=== PATIENT | female | born 1950 | race Caucasian/White ===

== ENCOUNTER → 2016-07-08 | Outpatient (REF) | payer OTHER ==
[~2016-07-08] MED LIST: ACET500C OR; ACET65TA OR; FLEXERIL PO; MULTIVIT PO; OMEP20TA7 OR; PROZ20CA OR; VICO5TAB OR
== END ==
LOC: M LAB REF 13:20
PROVIDERS: ATTEND Family Medicine
DX: R35.0 Frequency of micturition (principal)

== ENCOUNTER → 2016-08-12 | Outpatient (REF) | payer MEDICARE | LOC: M LAB REF 12:58 | PROVIDERS: ATTEND Family Medicine | DX: R31.9 Hematuria, unspecified (principal) ==

== ENCOUNTER 2018-05-25 03:11 | Inpatient (IN) | payer MEDICARE ==
[~2018-05-25] VITALS: Ht 162.6 cm; Wt 72.7 kg
[2018-05-25] MEDS ORDERED: NS 500 ML IV ONE ×2 (04:30→05:15)
[2018-05-25] MEDS ORDERED: PANTOPRAZOLE 40MG INJ (PROTONIX) (C9113) IV ONE (04:30)
[2018-05-25] MEDS ORDERED: MORPHINE 2 MG/ML 1ML SYRINGE (J2270) IV ONE (04:30)
[2018-05-25 04:35] LABS: BASO % 0.1 % (0.0-1.0); HEMATOCRIT 38.6 % (36.0-47.0); HEMOGLOBIN 13.1 g/dl (12.0-15.5); LYMPH # 0.7 10^3/uL (1.5-4.5); LYMPH % 4.7 % (24.0-44.0); MEAN CORPUSCULAR HEMOGLOBIN 30.8 pg (27.0-33.0); MEAN CORPUSCULAR HGB CONC 33.9 g/dl (32.0-36.5); MEAN CORPUSCULAR VOLUME 90.8 fl (80.0-96.0); MONO # 0.4 10^3/uL (0.0-0.8); MONO % 2.6 % (0.0-5.0); NEUTROPHILS # 13.5 10^3/uL (1.8-7.7); NEUTROPHILS % 92.2 % (36.0-66.0); PLATELET COUNT, AUTOMATED 309 10^3/uL (150-450); RED BLOOD COUNT 4.25 10^6/uL (4.00-5.40); WHITE BLOOD COUNT 14.6 10^3/uL (4.0-10.0)
[2018-05-25 04:39] LABS: INR 1.05; PROTHROMBIN TIME 13.8 SECONDS (12.1-14.4)
[2018-05-25 04:40] LABS: PARTIAL THROMBOPLASTIN TIME 21.2 SECONDS (25.4-37.6)
[2018-05-25 04:46] LABS: ALBUMIN 3.9 GM/DL (3.2-5.2); ALT/SGPT 24 U/L (12-78); BILIRUBIN,DIRECT 0.1 MG/DL (0.0-0.2); BILIRUBIN,TOTAL 0.3 MG/DL (0.2-1.0); BLOOD UREA NITROGEN 25 MG/DL (7-18); CALCIUM LEVEL 8.9 MG/DL (8.8-10.2); CARBON DIOXIDE LEVEL 23 MEQ/L (21-32); CHLORIDE LEVEL 103 MEQ/L (98-107); CREATININE FOR GFR 0.89 MG/DL (0.55-1.30); GLOMERULAR FILTRATION RATE > 60.0 (>39); GLUCOSE, FASTING 236 MG/DL (70-100); LIPASE 109 U/L (73-393); POTASSIUM SERUM 4.1 MEQ/L (3.5-5.1); SODIUM LEVEL 137 MEQ/L (136-145); TOTAL PROTEIN 7.5 GM/DL (6.4-8.2)
[2018-05-25] MEDS ORDERED: cloNIDine 0.2 MG TAB PO ONE (05:15)
[2018-05-25 05:25] VITALS: BP 186/79
[2018-05-25] MEDS ORDERED: ISOVUE-370 76% 100ML VIAL (Q9967) As Ordered ONE (05:55)
[2018-05-25] MEDS ORDERED: RANI150T PO (06:01)
[2018-05-25] MEDS ORDERED: IMODTAB PO (06:01)
[2018-05-25] MEDS ORDERED: FLUO20CA19 PO (06:01)
[2018-05-25] MEDS ORDERED: IMOD2TAB16 PO (06:01)
[2018-05-25] MEDS ORDERED: ONDANSETRON 4MG/2ML VIAL (J2405) IV PRN (06:30)
--- NOTE | 2018-05-25 06:30 | REPVR ---
EXAM: CT Abdomen and Pelvis With Contrast EXAM DATE/TIME: 05/25/2018 5:50 AM CLINICAL HISTORY: 68 years old, female; Pain; Abdominal pain; Generalized TECHNIQUE: Axial computed tomography images of the abdomen and pelvis with intravenous contrast. All CT scans at this facility use at least one of these dose optimization techniques: automated exposure control; mA and/or kV adjustment per patient size (includes targeted exams where dose is matched to clinical indication); or iterative reconstruction. Coronal and sagittal reformatted images were created and reviewed. CONTRAST: 100 ml of iso administered intravenously. COMPARISON: No relevant prior studies available. FINDINGS: Lower thorax: There is a small sliding hiatal hernia. ABDOMEN: Liver: Normal. No mass. Gallbladder and bile ducts: Normal. No calcified stones. No ductal dilation. Pancreas: Normal. No ductal dilation. Spleen: Normal. No splenomegaly. Adrenals: Normal. No mass. Kidneys and ureters: Normal. No hydronephrosis. Stomach and bowel: There is mild sigmoid colon diverticulosis. There is significant thickening and edema of the ascending, transverse and descending colon most severe in the distal transverse and descending colon with wall edema. There is under distended versus thickened small bowel loops. There are small shoddy mesenteric lymph nodes. Appendix: No evidence of appendicitis. PELVIS: Bladder: Unremarkable as visualized. Reproductive: There is a 2.2 x 1.8 cm left adnexal cyst. ABDOMEN and PELVIS: Intraperitoneal space: Normal. No free air. No significant fluid collection. Bones/joints: There is lumbar spine scoliosis with secondary DJD. Soft tissues: Unremarkable. Vasculature: There is circumaortic left renal vein. There is mild aortoiliac mural calcifications. Lymph nodes: See Stomach And Bowel Finding. IMPRESSION: 1. Ascending and transverse colon wall thickening and much more significant thickening and edema of the distal transverse, descending and sigmoid colon suggestive of colitis. Mesenteric arteries appear to be widely patent. 2. Thickened vs under distended small bowel loops with small shoddy lymph nodes raising the suspicion of enteritis. 3. Small sliding hiatal hernia. 4. 2.2 x 1.8 cm left adnexal cyst. Given the postmenopausal age of the patient correlation with pelvic ultrasound is recommended to document simple nature of the cyst as any complex cyst in a postmenopausal female is abnormal. Electronically signed by: David Sharpe On 05/25/2018 06:30:13 AM
[2018-05-25] MEDS ORDERED: LR 1,000 ML IV SCH (06:45)
[2018-05-25] MEDS ORDERED: MORPHINE 4 MG/ML 1ML VIAL/SYRINGE (J2270) IV PRN (06:45)
[2018-05-25 07:02] LABS: ERYTHROCYTE SEDIMENTATION RATE 11 mm/hr (0-30)
[2018-05-25 07:04] LABS: C REACTIVE PROTEIN QUANTITATIV < 0.30 MG/DL (0.00-0.30); MAGNESIUM LEVEL 1.8 MG/DL (1.8-2.4)
[2018-05-25 07:08] LABS: HEMOGLOBIN A1c 5.5 %
[2018-05-25] MEDS: CIPROFLOXACIN 400 MG in APPROPRIATE DILUENT 1 EA IV SCH ×2 (07:17→21:47)
[2018-05-25] MEDS: NS 1,000 ML IV SCH (08:30)
[2018-05-25] MEDS: metroNIDAZOLE 500 MG in APPROPRIATE DILUENT 1 EA IV SCH ×3 (08:51→23:45)
[2018-05-25] MEDS: FLUoxetine 20 MG CAP PO SCH (09:00)
[2018-05-25 09:30] VITALS: BP 115/56
--- NOTE | 2018-05-25 09:42 | HPE ---
DATE OF ADMISSION: 05/25/2018 CHIEF COMPLAINT: Acute bloody diarrhea. HISTORY OF PRESENT ILLNESS: The patient is a 68-year-old female with significant past medical history of depression, acid reflux, as well as chronic diarrhea, for which she states that she has taken chronic Imodium for the past 5 to 6 years. The patient states that she typically has two to three loose stools on a daily basis. When she does utilize the Imodium, she tends to have one stool typically semi formed or watery. She has had a colonoscopy in the past in 2013 here at [facility] with Dr. Farias, which read as a normal colon, repeat was scheduled for the next 10 years. As per patient's account, her primary care provider has suggested that her chronic diarrhea may be secondary to use of proton pump inhibitor, as well as Pepcid in the past. She continues to remain on Pepcid for what she described as severe acid reflux. She presents today with acute bloody diarrhea, dysentery over the last 24 hours. The patient states that she has had multiple bowel movements associated with crampy abdominal pain, bright red blood mixed in with her stools. The abdominal pain is somewhat diffuse, but mostly concentrated in the abdomen and associated with several episodes of nonbloody, nonbilious vomiting, and the last time she was able to tolerate oral intake was around 5:00 p.m. today. The patient's is at bedside, who does not have similar type symptoms, has eaten everything that the patient has eaten, her last meal she states was around 5:00 p.m. On her colonoscopy reports: She has chronic diarrhea, for which she depends on Imodium, though it was reported a grossly normal colonoscopy. There were no biopsies to assess for any microscopic colitis. She has no history of recent travel out of the country. No history of recent antibiotic use or recent hospitalization to suggest risk factors for Clostridium (C.) difficile. She denies any cough, chest pain, fevers, chills, urinary symptoms, shortness of breath. PAST MEDICAL HISTORY: See history of present illness. PAST SURGICAL HISTORY: She has had a lumpectomy. HOME MEDICATIONS: Include: - Prozac - Pepcid ALLERGIES: TYLENOL, HYDROCODONE, reactions are unclear. FAMILY HISTORY: Noncontributory. No family history of inflammatory bowel disease or gastrointestinal malignancies. SOCIAL HISTORY: She is a former smoker, quit many years ago. Denies any alcohol or illicit drug use. REVIEW OF SYSTEMS: 12-point review of system was completed, all of which were negative except those listed in the history of present illness. VITAL SIGNS: On admission: Temperature 96, pulse 82, respirations 20, blood pressure 213/97, saturating 99% on room air. The patient has no known history of hypertension. No documented history of hypertension. She was given clonidine in the emergency room, to which the blood pressure responded somewhat, systolic decreased to 170. PHYSICAL EXAMINATION: GENERAL: She is well nourished and in no apparent distress. HEAD: Normocephalic, atraumatic. EYES: Extraocular movements are intact. Pupils are equal, round and reactive to light. NECK: Supple. No jugular venous pressure. LUNGS: Clear to auscultation. No crackles, wheezes, rales or rhonchi. CARDIOVASCULAR: Regular rate and rhythm. Normal S1, S2. No murmurs, gallops or rubs. ABDOMEN: Nondistended. Hypoactive bowel sounds. No rebound or guarding. Minimal tenderness on deep palpation. SKIN: Intact. No rashes, lesions or breakdown. NEUROLOGIC EXAM: Alert and oriented times three. No focal deficits appreciated. LABORATORIES: On admission, completed in the emergency room: White count 14 with a left shift, hemoglobin and hematocrit 13/38, platelet count 309. Coags within normal limits. Chemistry shows a normal potassium. BUN and creatinine of 25/0.89, random glucose of 236 on her BMP. IMAGING: CT of the abdomen and pelvis completed with IV contrast only shows ascending and transverse colon wall thickening. Much more significant thickening of the distal transverse, descending, and sigmoid colon suggestive of colitis. Mesenteric arteries appear to be widely patent, thickened small bowel loops, small shotty lymph nodes raising suspicion for enteritis. Small hiatal hernia. ASSESSMENT AND PLAN: Acute dysentery bloody diarrhea superimposed on chronic diarrhea, reason for chronic diarrhea is unclear. This is likely an infectious colitis versus inflammatory colitis. We will send an ESR, C-reactive protein, stool calprotectin, stool lactoferrin. GI panel already sent from the emergency room. We will place the patient on Cipro and Flagyl. Zofran as needed. IV fluids. Diet as tolerated. We will avoid anticoagulants for deep vein thrombosis (DVT) prophylaxis and place the patient on SCDs. If the patient continues to have chronic diarrhea, she might likely benefit from an outpatient colonoscopy with biopsy to rule out microscopic colitis. We will hold her Imodium, as well as her Pepcid for now. For depression, we will continue her Prozac. For abnormal blood pressure on admission, the patient has no history of hypertension. She was given clonidine in the emergency room, systolic blood pressure decreased to the 170s. This may be possibly secondary to pain or undiagnosed hypertension. We will hold off initiation of antihypertensives for now. Vitals as per flow protocol. If blood pressure continues to remain elevated, she may benefit from the addition of an antihypertensive. Last systolic blood pressure was 170 and initial was in the 200s. We will also check thyroid function as the possible cause for her chronic diarrhea. For elevated glucose on her BMP, the patient has no history of diabetes. This may also be secondary to the acute infectious colitis that is currently going on, but we will send an A1/c to assess for overt diabetes. Supportive deep vein thrombosis (DVT) prophylaxis with SCDs in the setting of bloody diarrhea dysentery. Gastrointestinal prophylaxis, we will hold her Pepcid for now. Diet as tolerated. On IV fluids. MTDD
[2018-05-25 14:00] VITALS: BP 107/49
[2018-05-25 18:39] LABS: HEMATOCRIT 36.6 % (36.0-47.0); HEMOGLOBIN 12.3 g/dl (12.0-15.5)
[2018-05-25 22:00] VITALS: BP 121/58
[2018-05-26] MEDS: NS 1,000 ML IV SCH ×3 (02:46→19:53)
[2018-05-26 06:00] VITALS: BP 135/63
[2018-05-26 06:22] LABS: HEMATOCRIT 33.6 % (36.0-47.0); HEMOGLOBIN 11.1 g/dl (12.0-15.5); MEAN CORPUSCULAR HEMOGLOBIN 31.1 pg (27.0-33.0); MEAN CORPUSCULAR VOLUME 94.1 fl (80.0-96.0); PLATELET COUNT, AUTOMATED 259 10^3/uL (150-450); RED BLOOD COUNT 3.57 10^6/uL (4.00-5.40); WHITE BLOOD COUNT 8.8 10^3/uL (4.0-10.0)
[2018-05-26 06:55] LABS: BLOOD UREA NITROGEN 12 MG/DL (7-18); C REACTIVE PROTEIN QUANTITATIV 0.88 MG/DL (0.00-0.30); CALCIUM LEVEL 7.9 MG/DL (8.8-10.2); CARBON DIOXIDE LEVEL 24 MEQ/L (21-32); CHLORIDE LEVEL 110 MEQ/L (98-107); CREATININE FOR GFR 0.87 MG/DL (0.55-1.30); GLOMERULAR FILTRATION RATE > 60.0 (>39); GLUCOSE, FASTING 92 MG/DL (70-100); POTASSIUM SERUM 3.6 MEQ/L (3.5-5.1); SODIUM LEVEL 141 MEQ/L (136-145)
[2018-05-26] MEDS: metroNIDAZOLE 500 MG in APPROPRIATE DILUENT 1 EA IV SCH ×2 (08:39→16:29)
[2018-05-26] MEDS: FLUoxetine 20 MG CAP PO SCH (08:39)
[2018-05-26] MEDS: CIPROFLOXACIN 400 MG in APPROPRIATE DILUENT 1 EA IV SCH ×2 (10:42→20:18)
--- NOTE | 2018-05-26 12:34 | IPNPDOC ---
Text Note Date of Service The patient was seen on 05/26/18. NOTE Subjective: Patient is a 68-year-old female with a PMHx of Chronic diarrhea, Depression, GERD , presented to the ER with complaints of abdominal pain ass ociated with diarrhea and blood in her stool. Emergency room, patient imaging that was consistent with colitis. . She was admitted to the hospitalist service for further evaluation and treatment Patient was seen and examined at the bedside. Currently she denies abdominal pain, nausea, vomiting sisters is a loose stool with blood. Patient denies any chest pain, shortness of breath or palpitations Objective: Vitals (See below) General: Lying in bed, no acute distress, comfortable, AAOx3 HEENT: NC, AT CVS: RRR, +S1S2 Lungs: Fair air entry b/l, no appreciable wheezing, rales or rhonchi Abdomen: Soft, ND, abdomen, remains nontender Extremities: - Edema, - Calf tenderness Assessment and plan: Blood stools / Abdominal pain - possibly 2/2 Colitis - possibly 2/2 infectious, possibly 2/2 ischemic colitis - Presented to ER with abdominal pain associated with bloody stools - Patient notes that her abdominal pain is resolved. However, she still expressing bloody stools - Physical does not reveal any abdominal tenderness - Leukocytosis is resolving; s/p lactic acidosis - GI panel 05/25: Negative; Blood cultures 05/25: Negative at 24 hours - CT abdomen / pelvis 05/25: 1. Ascending and transverse colon wall thickening and much more significant thickening and edema of the distal transverse, descending and sigmoid colon suggestive of colitis. Mesenteric arteries appear to be widely patent. 2. Thickened vs under distended small bowel loops with small shoddy lymph nodes raising the suspicion of enteritis. 3. Small sliding hiatal hernia. 4. 2.2 x 1.8 cm left adnexal cyst. Given the postmenopausal age of the patient correlation with pelvic ultrasound is recommended to document simple nature of the cyst as any complex cyst in a postmenopausal female is abnormal. - Will check LDH - c/w Ciprofloxacin and Flagyl (Day #2) - Consult with gastroenterology; appreciate their input; plan for colonoscopy tomorrow afternoon; NPO post-midnight and GoLYTELY at 4 PM Left adnexal cyst - Will get pelvic ultrasound for further evaluation s/p Lactic acidosis Depression - c/w Fluoxetine s/p Hypertensive urgency - likely 2/2 pain GI prophylaxis - c/w Protonix; will return patient back to famotidine as her symptoms improve DVT prophylaxis - c/w SCDs (re: rectal bleeding) VS,Fishbone, I+O VS, Fishbone, I+O Laboratory Tests 05/25/18 18:02 05/26/18 05:26 Red Blood Count 3.57 L, Mean Corpuscular Volume 94.1, Mean Corpuscular Hemoglobin 31.1, Mean Corpuscular Hemoglobin Concent 33.0, Red Cell Distribution Width 12.9, Calcium Level 7.9 L Vital Signs Date Time Temp Pulse Resp B/P (MAP) Pulse Ox O2 Delivery O2 Flow Rate FiO2 05/26/18 06:00 98.0 68 18 135/63 (87) 97 Room Air I&O- Last 24 Hours up to 6 AM 05/26/18 06:00 Intake Total 2380 ml Output Total 1070 ml Balance 1310 ml REMIGIO INGRAM MD May 26, 2018 12:34
[2018-05-26 14:00] VITALS: BP 154/67
[2018-05-26] MEDS ORDERED: GOLYTELY SOLN 4000 ML BTL PO SCH (16:00)
--- NOTE | 2018-05-26 16:14 | REP ---
Pelvic sonography: History: Evaluate for pelvic cyst. Findings: Transabdominal and transvaginal scanning are performed. Uterine dimensions are normal at 5.3 x 3.0 x 4.6 cm. Endometrial echo 0.3 cm thick and centrally placed. Uterine texture is somewhat heterogeneous. No measurable uterine mass lesion. Bladder mitchell are slightly thickened. There is a tiny amount of fluid visible in the cul-de-sac to the right of midline. The right ovary could not be seen. No right adnexal mass or cyst is seen. A normal left ovary seen measuring 2.8 x 2.2 x 1.9 cm. There is a simple cyst in the left ovary measuring 2.3 x 2.0 x 1.6 cm. Impression: Minimal fluid in the cul-de-sac. Simple appearing 2.3 cm cyst left ovary. Otherwise negative. Right ovary could not be directly visualized. Electronically Signed by Edmund Boyer MD 05/26/2018 04:05 P
--- NOTE | 2018-05-26 18:16 | CR.PDOC ---
General Date of Consultation: May 26, 2018 Referring Provider: REMIGIO INGRAM MD Attending Physician: REMIGIO INGRAM MD Consultation Primary physician/ hospitalist: Dr. Ingram. Reason for consult: Rectal bleeding HPI: 68-year-old female patient with depression on Prozac, chronic diarrhea ( using daily Imodium), presented to ER for complaints of acute onset nausea, vomiting, epigastric abdominal pain, worsening diarrhea with blood in the stool, which started on Wednesday. Patient reports having multiple episodes of loose bloody stools which gradually improved over the last 24 hours. Patient denies any fu rther nausea or vomiting and her abdominal pain also resolved. Patient's last bloody bowel movement was today morning. Patient does report subjective chills but no documented fever. Patient reports having seafood on Wednesday at a restaurant prior to onset of these symptoms. Off note: Patient had stool panel in this visit which was negative. Pertinent negative GI symptoms: Patient denies loss of appetite, early satiety or unintentional weight loss. No history of hematemesis. Patient reports regular bowel movements. Review of Systems: GI: as stated above CVS: No chest pain, No palpitations, No leg swelling. RS: No Shortness of breath, No Wheezing, no cough [employer]: No dizziness, No motor weakness, No sensory problems Hematology: No bruising, No gum bleeding, Musculoskeletal: No joint pain, ambulating well. Skin: No rash : No hematuria, No burning sensation of the urine ENT: No ear discharge/ pain, No dysphagia. Eyes: No photophobia. Home medications: reviewed. Antithrombotic agents -none Medical h/o: As above. Surgical h/o: None on abdomen. Social h/o: Alcohol-denies, tobacco-denies, IVDA/ drugs-denies. Family h/o of GI cancers -none Prior Endoscopies: --- EGD -none --- Colonoscopy -[address] Farias -- normal as per patient. Prior GI evaluation: None in [facility] Exam: Vitals: reviewed General: Alert and oriented x 3, not in distress HEENT: NO pallor, no icterus. Normal oropharynx, NO cervical lymph nodes. Chest: symmetric with bilateral clear air entry, CVS: S1, S2 heard, normal, no murmurs . Abdomen: non-distended, no surgical scars, soft, non-tender, no palpable masses, normal bowel sounds heard. Rectal exam: Patient refused / Deferred at this time in view of scheduled colonoscopy. Extremities: no pedal edema, pulses palpable. [employer]: no focal motor or sensory deficits. Moves all extremities Skin: no rash. Labs: reviewed. Imaging tests: reviewed CT abdomen and Pelvis with contrast -- showing colitis. Mesenteric arteries appear to be widely patent, Impression: - Right red bleeding per rectum with chronic history of diarrhea and use of Imodium abdominal imaging showing colon thickening -- needs further evaluation -- DDx-- Ischemic colitis vs Diverticulosis vs Colon polyps vs infectious (stool panel was negative). Recommendations: - Patient educated about the test results, possible differential diagnoses and All questions answered. - IV hydration as needed. - Continue empiric Antibiotics for now. - Avoid NSAIDs. - Patient is schedule for Colonoscopy. Patient is educated about the procedure, indications, risks (bleeding, perforation, infection, hypotension, respiratory depression, allergy, need for endotracheal intubation, surgery, colostomy, cardiac arrest, even ), benefits, limitations (e.g., missing a lesion), and all other alternatives (including no intervention) were explained to the patient who understood and agreed for the procedure. - Complete 4 liters of golytely ( start in evening and complete by midnight) - Dulcolax 20 mg at today evening. - NPO after midnight for procedure. Plan of care discussed with patient and primary team. Patient verbalized understanding and agreed with the plan. Vital Signs/I&O Vital Signs Date Time Temp Pulse Resp B/P (MAP) Pulse Ox O2 Delivery O2 Flow Rate FiO2 05/26/18 14:00 98.8 70 18 154/67 (96) 98 Room Air I&O- Last 24 Hours up to 6 AM 05/26/18 05:59 Intake Total 1730 ml Output Total 770 ml Balance 960 ml Laboratory Data Labs 24H Laboratory Tests 2 05/25/18 23:25: 05/26/18 05:26: Nucleated Red Blood Cells % (auto) 0.0, Anion Gap 7L, Glomerular Filtration Rate > 60.0, Blood Urea Nitrogen 12#, Creatinine 0.87, Sodium Level 141, Potassium Level 3.6, Chloride Level 110H, Carbon Dioxide Level 24, Calcium Level 7.9L, C-Reactive Protein, Quantitative 0.88H 05/26/18 12:49: CBC/BMP Laboratory Tests 05/26/18 05:26 Red Blood Count 3.57 L, Mean Corpuscular Volume 94.1, Mean Corpuscular Hemoglobin 31.1, Mean Corpuscular Hemoglobin Concent 33.0, Red Cell Distribution Width 12.9, Calcium Level 7.9 L Microbiology Microbiology 05/25/18 Blood Culture - Preliminary, Resulted No growth after 24 hours . All specim... 05/25/18 Gastrointestinal Tract Panel (PCR) - Final, Complete Allergies Coded Allergies: No Known Drug Allergy (Verified Allergy, Unknown, 08/15/12) Acetaminophen (Verified Adverse Reaction, Intermediate, NAUSEA AND VOMITTING, MOOD CHANGES, 08/15/12) Hydrocodone (Verified Adverse Reaction, Intermediate, NAUSEA AND VOMITTING, MOOD CHANGES, 08/15/12) Home Medications Scheduled Fluoxetine Hcl (Fluoxetine HCl) 20 Mg Cap, 20 MG PO DAILY, (Reported) Ranitidine HCl (Ranitidine HCl) 150 Mg Tab, 1 TAB PO BID, (Reported) Scheduled PRN (Imodium Multi-Symptom Rel 2-125 mg) 1 Tab Tab, 1 TAB PO BID PRN for BOWEL CARE, (Reported) Loperamide Hcl (Imodium A-D) 2 Mg Tab, 2 MG PO BID PRN for BOWEL CARE, (Reported) CHRIS HERRERA MD May 26, 2018 18:16
[2018-05-26 22:00] VITALS: BP 152/87
[2018-05-27] MEDS: metroNIDAZOLE 500 MG in APPROPRIATE DILUENT 1 EA IV SCH ×4 (00:02→23:53)
[2018-05-27 06:00] VITALS: BP 153/72
[2018-05-27 06:59] LABS: HEMOGLOBIN 11.5 g/dl (12.0-15.5); MEAN CORPUSCULAR HEMOGLOBIN 30.7 pg (27.0-33.0); MEAN CORPUSCULAR HGB CONC 33.8 g/dl (32.0-36.5); MEAN CORPUSCULAR VOLUME 90.7 fl (80.0-96.0); PLATELET COUNT, AUTOMATED 267 10^3/uL (150-450); RED BLOOD COUNT 3.75 10^6/uL (4.00-5.40); WHITE BLOOD COUNT 9.7 10^3/uL (4.0-10.0)
[2018-05-27 07:16] LABS: BLOOD UREA NITROGEN 6 MG/DL (7-18); C REACTIVE PROTEIN QUANTITATIV 0.78 MG/DL (0.00-0.30); CALCIUM LEVEL 7.9 MG/DL (8.8-10.2); CARBON DIOXIDE LEVEL 24 MEQ/L (21-32); CHLORIDE LEVEL 109 MEQ/L (98-107); CREATININE FOR GFR 0.83 MG/DL (0.55-1.30); GLOMERULAR FILTRATION RATE > 60.0 (>39); GLUCOSE, FASTING 92 MG/DL (70-100); POTASSIUM SERUM 3.5 MEQ/L (3.5-5.1); SODIUM LEVEL 144 MEQ/L (136-145)
[2018-05-27 08:00] LABS: LDH LACTATE DEHYDROGENASE 279 U/L (84-246)
[2018-05-27] MEDS: CIPROFLOXACIN 400 MG in APPROPRIATE DILUENT 1 EA IV SCH ×2 (09:00→20:54)
[2018-05-27] MEDS: FLUoxetine 20 MG CAP PO SCH (09:15)
[2018-05-27] MEDS: NS 1,000 ML IV SCH (10:21)
[2018-05-27] MEDS ORDERED: PROPOFOL 200 MG/20 ML VIAL As Ordered ONE (10:26)
[2018-05-27] MEDS ORDERED: LIDOCAINE 2% INJ 100 MG/5 ML SDV (FOR ANES.) As Ordered ONE (10:26)
--- NOTE | 2018-05-27 12:27 | IPNPDOC ---
Text Note Date of Service The patient was seen on 05/27/18. NOTE Subjective: Patient is a 68-year-old female with a PMHx of Chronic diarrhea, Depression, GERD , presented to the ER with complaints of abdominal pain ass ociated with diarrhea and blood in her stool. Emergency room, patient imaging that was consistent with colitis. . She was admitted to the hospitalist service for further evaluation and treatment Patient was seen and examined at the bedside. Patient denies any bleeding per rectum this morning. Denies any chest pain, shortness of breath or palpitations. Denies nausea, vomiting, abdominal pain. Has not expense any urinary discomfort has completed her GoLYTELY preparation and will be going for colonoscopy later today. Objective: Vitals (See below) General: Lying in bed, no acute distress, comfortable, AAOx3 HEENT: NC, AT CVS: RRR, +S1S2 Lungs: Fair air entry b/l, auscultation, there does not appear to be any evidence of wheezing, rhonchi or rales Abdomen: abdomen remains soft, nondistended, without any tenderness Extremities: Lower extremities are without any evidence of edema, - Calf tenderness Assessment and plan: Blood stools / Abdominal pain - possibly 2/2 Colitis - possibly 2/2 infectious, possibly 2/2 ischemic colitis - Initially presented to the ER with abdominal plain and bloody stools; these symptoms have since resolved - No longer experienced bloody stools - s/p Leukocytosis; s/p lactic acidosis - LDH mildly elevated - GI panel 05/25: Negative; Blood cultures 05/25: Negative at 24 hours - CT abdomen / pelvis 05/25: 1. Ascending and transverse colon wall thickening and much more significant thickening and edema of the distal transverse, descending and sigmoid colon suggestive of colitis. Mesenteric arteries appear to be widely patent. 2. Thickened vs under distended small bowel loops with small shoddy lymph nodes raising the suspicion of enteritis. 3. Small sliding hiatal hernia. 4. 2.2 x 1.8 cm left adnexal cyst. Given the postmenopausal age of the patient correlation with pelvic ultrasound is recommended to document simple nature of the cyst as any complex cyst in a postmenopausal female is abnormal. - c/w Ciprofloxacin and Flagyl (Day #3) - GI on consult; appreciate their input; colonoscopy this afternoon Left adnexal cyst - Pelvis US 05/26: Minimal fluid in the cul-de-sac. Simple appearing 2.3 cm cyst left ovary. Otherwise negative. Right ovary could not be directly visualized. s/p Lactic acidosis Depression - c/w Fluoxetine s/p Hypertensive urgency - likely 2/2 pain GI prophylaxis - c/w Protonix; will return patient back to famotidine as her symptoms improve DVT prophylaxis - c/w SCDs (re: rectal bleeding) Disposition: - Pending colonoscopy VS,Kinsey, I+O VS, [place], I+O Laboratory Tests 05/27/18 06:09 Red Blood Count 3.75 L, Mean Corpuscular Volume 90.7, Mean Corpuscular Hemoglobin 30.7, Mean Corpuscular Hemoglobin Concent 33.8, Red Cell Distribution Width 12.7, Calcium Level 7.9 L Vital Signs Date Time Temp Pulse Resp B/P (MAP) Pulse Ox O2 Delivery O2 Flow Rate FiO2 05/27/18 06:00 97.7 72 18 153/72 (99) 95 Room Air I&O- Last 24 Hours up to 6 AM 05/27/18 06:00 Intake Total 5520 ml Output Total 1850 ml Balance 3670 ml REMIGIO INGRAM MD May 27, 2018 12:27
--- NOTE | 2018-05-27 13:12 | ROOR ---
Patient Name: Lurdes Abreu Procedure Date: 05/27/2018 12:01 PM Date of : 1950 Age: 68 Room: [facility] Gender: Female Note Status: Finalized Procedure: Colonoscopy Indications: Hematochezia Providers: Gilles Gallagher MD Referring MD: Mamie Bradford MD Requesting Provider: Medicines: Monitored Anesthesia Care Complications: No immediate complications. Procedure: Pre-Anesthesia Assessment: - Prior to the procedure, a History and Physical was performed, and patient medications and allergies were reviewed. The patient is competent. The risks and benefits of the procedure and the sedation options and risks were discussed with the patient. All questions were answered and informed consent was obtained. Patient identification and proposed procedure were verified by the physician, the nurse and the anesthesiologist in the procedure room. Mental Status Examination: alert and oriented. Airway Examination: normal oropharyngeal airway and neck mobility. Respiratory Examination: clear to auscultation. CV Examination: normal. Prophylactic Antibiotics: The patient does not require prophylactic antibiotics. Prior Anticoagulants: The patient has taken no previous anticoagulant or antiplatelet agents. ASA Grade Assessment: II - A patient with mild systemic disease. After reviewing the risks and benefits, the patient was deemed in satisfactory condition to undergo the procedure. The anesthesia plan was to use monitored anesthesia care (MAC). Immediately prior to administration of medications, the patient was re-assessed for adequacy to receive sedatives. The heart rate, respiratory rate, oxygen saturations, blood pressure, adequacy of pulmonary ventilation, and response to care were monitored throughout the procedure. The physical status of the patient was re-assessed after the procedure. The Colonoscope was introduced through the anus and advanced to the cecum, identified by the ileocecal valve. The colonoscopy was performed without difficulty. The patient tolerated the procedure well. The quality of the bowel preparation was good. The ileocecal valve, appendiceal orifice, and rectum were photographed. Scope insertion time was 4 minutes. Scope withdrawal time was 8 minutes. The total duration of the procedure was 12 minutes. Findings: The perianal and digital rectal examinations were normal. Patchy severe inflammation characterized by altered vascularity, granularity, linear erosions, mucus and shallow ulcerations was found in the proximal descending colon and in the distal transverse colon. Biopsies were taken with a cold forceps for histology. Verification of patient identification for the specimen was done by the physician and nurse using the patient's name, date and medical record number. Estimated blood loss was minimal. Non-bleeding external and internal hemorrhoids were found during anoscopy. The hemorrhoids were medium-sized. There is no endoscopic evidence of polyps in the entire colon. Impression: - Patchy severe inflammation was found in the proximal descending colon and in the distal transverse colon secondary to ischemic colitis. Biopsied. - Non-bleeding external and internal hemorrhoids. Recommendation: - Patient has a contact number available for emergencies. The signs and symptoms of potential delayed complications were discussed with the patient. Return to normal activities tomorrow. Written discharge instructions were provided to the patient. - Resume previous diet. - Continue present medications. - Await pathology results. - Use broad spectrum antibiotics for 7 days. - Repeat colonoscopy in 5 years for screening purposes. - Telephone GI clinic for pathology results @ [phone] after 1 week on Wednesday afternoon between 1:00 to 3:00 PM. - Return to primary care physician. Gilles Gallagher MD Gilles Gallagher MD 05/27/2018 1:12:07 PM This report has been signed electronically. Number of Addenda: 0 Note Initiated On: 05/27/2018 12:01 PM Estimated Blood Loss: Estimated blood loss was minimal.
[2018-05-27 14:00] VITALS: BP 165/71
[2018-05-27] MEDS ORDERED: IBUPROFEN 400 MG TAB PO ONE (21:45)
[2018-05-27 22:00] VITALS: BP 170/68
[2018-05-27 23:30] VITALS: BP 152/64
[2018-05-28 02:00] VITALS: BP 150/62
[2018-05-28 05:46] LABS: HEMATOCRIT 34.9 % (36.0-47.0); HEMOGLOBIN 11.7 g/dl (12.0-15.5); MEAN CORPUSCULAR HEMOGLOBIN 30.5 pg (27.0-33.0); MEAN CORPUSCULAR HGB CONC 33.5 g/dl (32.0-36.5); MEAN CORPUSCULAR VOLUME 91.1 fl (80.0-96.0); PLATELET COUNT, AUTOMATED 257 10^3/uL (150-450); RED BLOOD COUNT 3.83 10^6/uL (4.00-5.40); WHITE BLOOD COUNT 8.1 10^3/uL (4.0-10.0)
[2018-05-28 06:00] VITALS: BP 132/64
[2018-05-28 06:08] LABS: BLOOD UREA NITROGEN 5 MG/DL (7-18); C REACTIVE PROTEIN QUANTITATIV 0.88 MG/DL (0.00-0.30); CALCIUM LEVEL 7.8 MG/DL (8.8-10.2); CARBON DIOXIDE LEVEL 25 MEQ/L (21-32); CHLORIDE LEVEL 108 MEQ/L (98-107); CREATININE FOR GFR 0.75 MG/DL (0.55-1.30); GLOMERULAR FILTRATION RATE > 60.0 (>39); GLUCOSE, FASTING 90 MG/DL (70-100); POTASSIUM SERUM 3.2 MEQ/L (3.5-5.1); SODIUM LEVEL 140 MEQ/L (136-145)
[2018-05-28] MEDS ORDERED: POTASSIUM CHLORIDE 10 MEQ SR TABLET PO ONE (07:30)
[2018-05-28] MEDS: FLUoxetine 20 MG CAP PO SCH (08:49)
[2018-05-28] MEDS: metroNIDAZOLE 500 MG in APPROPRIATE DILUENT 1 EA IV SCH (08:51)
[2018-05-28] MEDS: CIPROFLOXACIN 400 MG in APPROPRIATE DILUENT 1 EA IV SCH (09:00)
[2018-05-28] MEDS ORDERED: CIPR500T3 PO (09:24)
[2018-05-28] MEDS ORDERED: METR-201 PO (09:24)
--- NOTE | 2018-05-28 14:38 | DS.PDOC ---
Discharge Summary General Date of Admission May 25, 2018 at 06:25 Date of Discharge 05/28/2018 Discharge Summary PROCEDURES PERFORMED DURING STAY: [None]. ADMITTING DIAGNOSES / DISCHARGE DIAGNOSES: Blood stools / Abdominal pain - possibly 2/2 Colitis - possibly 2/2 infectious, possibly 2/2 ischemic colitis Left adnexal cyst s/p Lactic acidosis Depression s/p Hypertensive urgency - likely 2/2 pain GI prophylaxis DVT prophylaxis COMPLICATIONS/CHIEF COMPLAINT: Bloody Diarrhea. HISTORY OF PRESENT ILLNESS: Patient is a 68-year-old female with a PMHx of Chronic diarrhea, Depression, GERD , presented to the ER with complaints of abdominal pain associated with diarrhea and blood in her stool. Emergency room, patient imaging that was consistent with colitis. . She was admitted to the hospitalist service for further evaluation and treatment HOSPITAL COURSE: Blood stools / Abdominal pain - possibly 2/2 Colitis - possibly 2/2 infectious, possibly 2/2 ischemic colitis - Initially presented to the ER with abdominal plain and bloody stools; these symptoms have since resolved - No longer experienced bloody stools - s/p Leukocytosis; s/p lactic acidosis - LDH mildly elevated - GI panel 05/25: Negative; Blood cultures 05/25: Negative at 24 hours - CT abdomen / pelvis 05/25: 1. Ascending and transverse colon wall thickening and much more significant thickening and edema of the distal transverse, descending and sigmoid colon suggestive of colitis. Mesenteric arteries appear to be widely patent. 2. Thickened vs under distended small bowel loops with small shoddy lymph nodes raising the suspicion of enteritis. 3. Small sliding hiatal hernia. 4. 2.2 x 1.8 cm left adnexal cyst. Given the postmenopausal age of the patient correlation with pelvic ultrasound is recommended to document simple nature of the cyst as any complex cyst in a postmenopausal female is abnormal. - s/p Colonoscopy 05/27: Was consistent with possibly ischemic colitis; results have been explained to patient and by Dr. Gallagher - c/w Ciprofloxacin and Flagyl (Day #4); will complete course of steroids as an outpatient - GI on consult; appreciate their input; will have outpatient follow-up for results of biopsy Left adnexal cyst - Pelvis US 05/26: Minimal fluid in the cul-de-sac. Simple appearing 2.3 cm cyst left ovary. Otherwise negative. Right ovary could not be directly visualized. s/p Lactic acidosis Depression - c/w Fluoxetine s/p Hypertensive urgency - likely 2/2 pain GI prophylaxis - c/w Protonix; will return patient back to famotidine as her symptoms improve DVT prophylaxis - c/w SCDs (re: rectal bleeding) DISCHARGE MEDICATIONS: Please see below. ALLERGIES: Please see below. PHYSICAL EXAMINATION ON DISCHARGE: Vitals (See below) General: Lying in bed, no acute distress, comfortable, AAOx3 HEENT: NC, AT CVS: RRR, +S1S2 Lungs: Fair air entry b/l, who does not appear to be any wheezing, rhonchi or rales upon auscultation Abdomen: abdomen remains soft, ND without tenderness Extremities: LE without edema, - Calf tenderness LABORATORY DATA: Please see below. ACTIVITY: [As tolerated]. DISCHARGE PLAN: Follow-up with Dr. Mamie Bradford and Dr. Gallagher Remain compliant with treatment plan and medications Return to the ER if you experience any problems DISPOSITION: Home, Self-Care. DISCHARGE CONDITION: [Stable]. TIME SPENT ON DISCHARGE: Greater than [35] minutes. Vital Signs/I&Os Vital Signs Date Time Temp Pulse Resp B/P (MAP) Pulse Ox O2 Delivery O2 Flow Rate FiO2 05/28/18 06:00 98.5 72 15 132/64 (86) 95 Room Air I&O- Last 24 Hours up to 6 AM 05/28/18 06:00 Intake Total 1450 ml Output Total 0 ml Balance 1450 ml Laboratory Data Labs 24H Laboratory Tests 2 05/28/18 05:24: Nucleated Red Blood Cells % (auto) 0.0, Anion Gap 7L, Glomerular Filtration Rate > 60.0, Blood Urea Nitrogen 5L, Creatinine 0.75, Sodium Level 140, Potassium Level 3.2L, Chloride Level 108H, Carbon Dioxide Level 25, Calcium Level 7.8L, C- Reactive Protein, Quantitative 0.88H CBC/BMP Laboratory Tests 05/28/18 05:24 Red Blood Count 3.83 L, Mean Corpuscular Volume 91.1, Mean Corpuscular Hemoglobin 30.5, Mean Corpuscular Hemoglobin Concent 33.5, Red Cell Distribution Width 12.4, Calcium Level 7.8 L Microbiology Microbiology 05/25/18 Blood Culture - Preliminary, Resulted No Growth after 72 hours. All specime... 05/27/18 Gastrointestinal Tract Panel (PCR) - Final, Complete 05/25/18 Gastrointestinal Tract Panel (PCR) - Final, Complete Discharge Medications Scheduled Ciprofloxacin HCl (Ciprofloxacin HCl) 500 Mg Tab, 500 MG PO BID Fluoxetine Hcl (Fluoxetine HCl) 20 Mg Cap, 20 MG PO DAILY, (Reported) Metronidazole (Metronidazole) 500 Mg Tab, 500 MG PO TID Ranitidine HCl (Ranitidine HCl) 150 Mg Tab, 1 TAB PO BID, (Reported) Scheduled PRN (Imodium Multi-Symptom Rel 2-125 mg) 1 Tab Tab, 1 TAB PO BID PRN for BOWEL CARE, (Reported) Allergies Coded Allergies: Acetaminophen (Verified Adverse Reaction, Intermediate, NAUSEA AND VOMITTING, MOOD CHANGES, 08/15/12) Hydrocodone (Verified Adverse Reaction, Intermediate, NAUSEA AND VOMITTING , MOOD CHANGES, 08/15/12) REMIGIO INGRAM MD May 28, 2018 14:37
== END 2018-05-28 12:00 | disposition home or self-care (01) | DRG 378 ==
LOC: M ED 03:11 → EDBD 03:11 → M ED INP 06:25 → M MSPAV 09:24
PROVIDERS: ADMIT Internal Medicine; ATTEND Internal Medicine
PROC: 0DBL8ZX Excision of Transverse Colon, Via Natural or Artificial Opening Endoscopic, Diagnostic (ICD-10-PCS; 2018-05-27)
PROC: 0DBM8ZX Excision of Descending Colon, Via Natural or Artificial Opening Endoscopic, Diagnostic (ICD-10-PCS; principal; 2018-05-27 14:10)
DX: K92.1 Melena (principal); A09 Infectious gastroenteritis and colitis, unspecified; E87.2 Acidosis; K55.9 Vascular disorder of intestine, unspecified; I16.0 Hypertensive urgency; F32.9 Major depressive disorder, single episode, unspecified; K21.9 Gastro-esophageal reflux disease without esophagitis; K44.9 Diaphragmatic hernia without obstruction or gangrene; N83.292 Other ovarian cyst, left side; Z79.899 Other long term (current) drug therapy; Z88.5 Allergy status to narcotic agent; Z88.8 Allergy status to other drugs, medicaments and biological substances; K64.8 Other hemorrhoids; K64.4 Residual hemorrhoidal skin tags

== ENCOUNTER → 2019-01-25 | Outpatient (CLI) | payer MEDICARE ==
[~2019-01-25] MED LIST changes: +CIPR500T3 PO; +FLUO20CA19 PO; +IMOD2TAB16 PO; +IMODTAB PO; +METR-265 PO; +RANI150T PO
--- NOTE | 2019-01-25 10:22 | REPVR ---
EXAM: MR Lumbar Spine Without Contrast. EXAM DATE/TIME: 01/25/2019 9:46 AM CLINICAL HISTORY: 68 years old, female; Condition or disease; Spondylosis, lumbosacral; Lumbar region; With radiculopathy TECHNIQUE: Imaging protocol: Multiplanar magnetic resonance images of the lumbar spine without intravenous contrast. COMPARISON: No relevant prior studies available. FINDINGS: Vertebrae: Left lumbar scoliosis centered at the L2-L3 level with disc space narrowing asymmetric toward the right. There is lateral spurring at L2-L3 asymmetric toward the right. On sagittal images the alignment is anatomic. The vertebral body heights are maintained. No compression fracture. No suspicious marrow replacing lesions. Interosseous hemangiomas noted. Spinal cord: The demonstrated cord is normal in signal intensity. The conus medullaris terminates normally. L1-L2: Disc desiccation. Mild annular bulging. No focal disc herniation. No significant spinal stenosis. The exiting anteversion roots demonstrated. Facets intact. L2-L3: Disc desiccation with disc space narrowing asymmetric toward the right. Endplate degenerative changes asymmetric toward the right and right lateral disc osteophyte complex. Mild annular bulging. Moderate facet degenerative change of the right with ligamentous infolding. There is central canal stenosis anterolaterally toward the right and right foraminal encroachment. The right L2 root is not as well demonstrated is left L2 root. L3-L4: Disc desiccation and annular bulging more prominent posterolaterally toward the right. There is right greater than left mild to moderate facet degenerative change with ligamentous infolding. Mild central canal stenosis. Right neural foraminal encroachment. Annular bulging abuts the right L3 root. The left L3 root is better demonstrated. L4-L5: Disc desiccation. Mild annular bulging discussed by complex slightly asymmetric laterally toward the left. The exiting L4 roots well seen and the neural foramen. There is moderate facet degenerative change with some ligamentous infolding but no overt central canal stenosis. Epidural fat remains anterolateral and posterior to the sac. L5-S1: Disc desiccation this with small annular fissure posteriorly. Mild annular bulging. The thecal sac is normal in size. The exiting L5 roots demonstrated. There are [id number] facet degenerative changes. Mild narrowing of the left lateral recess more superiorly. The left S1 root is slightly impressed upon at this location. The right S1 root as normally seen. Soft tissues: No paraspinal soft tissue mass. IMPRESSION: Left lumbar scoliosis centered at the L2-L3 level with disc space narrowing asymmetric toward the right. There is lateral spurring at L2-L3 asymmetric toward the right. On sagittal images the alignment is anatomic. The vertebral body heights are maintained. No compression fracture. At L2-L3, central canal stenosis anterolaterally toward the right and right foraminal encroachment. The right L2 root is not as well demonstrated is left L2 root. At L3-L4, mild central canal stenosis. Right neural foraminal encroachment. Annular bulging abuts the right L3 root. At L4-L5, moderate facet degenerative change with some ligamentous infolding but no overt central canal stenosis. Epidural fat remains anterolateral and posterior to the sac. At L5-S1, mild annular bulging with small fissure posteriorly. Mild narrowing of the left lateral recess more superiorly. The left S1 root is slightly impressed upon at this location. Additional multilevel degenerative changes as described level by level above. Electronically signed by: Bo Rangel On 01/25/2019 10:22:37 AM
== END ==
LOC: M RAD 09:04
PROVIDERS: ATTEND Physical Medicine & Rehabilitation
DX: M47.27 Other spondylosis with radiculopathy, lumbosacral region (principal); M48.061 Spinal stenosis, lumbar region without neurogenic claudication; M51.26 Other intervertebral disc displacement, lumbar region

== ENCOUNTER → 2019-03-02 | Outpatient (REF) | payer MEDICARE ==
[2019-03-02 13:00] LABS: PLATELET COUNT, AUTOMATED 289 10^3/uL (150-450)
[2019-03-02 13:11] LABS: INR 1.09; PARTIAL THROMBOPLASTIN TIME 26.3 SECONDS (25.0-38.4); PROTHROMBIN TIME 13.8 SECONDS (11.8-14.0)
[2019-03-02 13:34] LABS: COLLAGEN EPINEPHRINE 116 SECONDS (74-162)
== END ==
LOC: M LABDRAW1 12:44
PROVIDERS: ATTEND Physical Medicine & Rehabilitation
DX: Z01.812 Encounter for preprocedural laboratory examination (principal); M51.37 Other intervertebral disc degeneration, lumbosacral region

== ENCOUNTER 2019-06-19 12:04 | Day surgery (SDC) | payer MEDICARE ==
[~2019-06-19] VITALS: Ht 162.6 cm; Wt 70.3 kg
[~2019-06-19 12:04] MED LIST changes: +FAMO20TA PO; -FLUO20CA19 PO; +FLUO20CA22 PO; +LOPE1TAB PO; +MULTTAB86 PO; +NS 1,000 ML IV ONE; +PROBCAP14 PO
[2019-06-19] MEDS ORDERED: NS 1,000 ML IV ONE (13:30)
[2019-06-19] MEDS ORDERED: LIDOCAINE 2% INJ 100 MG/5 ML SDV (FOR ANES.) As Ordered ONE (13:31)
[2019-06-19] MEDS ORDERED: propofoL 200 MG/20 ML VIAL As Ordered ONE ×2 (13:31→13:33)
--- NOTE | 2019-06-19 14:04 | ROOR ---
Patient Name: Lurdes Abreu Procedure Date: 06/19/2019 1:23 PM Date of : 1950 Age: 69 Room: [facility] Gender: Female Note Status: Finalized Procedure: Upper GI endoscopy Indications: Dyspepsia Providers: Gilles Gallagher MD Referring MD: Mamie Bradford MD Requesting Provider: Medicines: Monitored Anesthesia Care Complications: No immediate complications. Procedure: Pre-Anesthesia Assessment: - Prior to the procedure, a History and Physical was performed, and patient medications and allergies were reviewed. The patient is competent. The risks and benefits of the procedure and the sedation options and risks were discussed with the patient. All questions were answered and informed consent was obtained. Patient identification and proposed procedure were verified by the physician, the nurse and the anesthesiologist in the procedure room. Mental Status Examination: alert and oriented. Airway Examination: normal oropharyngeal airway and neck mobility. Respiratory Examination: clear to auscultation. CV Examination: normal. Prophylactic Antibiotics: The patient does not require prophylactic antibiotics. Prior Anticoagulants: The patient has taken no previous anticoagulant or antiplatelet agents. ASA Grade Assessment: II - A patient with mild systemic disease. After reviewing the risks and benefits, the patient was deemed in satisfactory condition to undergo the procedure. The anesthesia plan was to use monitored anesthesia care (MAC). Immediately prior to administration of medications, the patient was re-assessed for adequacy to receive sedatives. The heart rate, respiratory rate, oxygen saturations, blood pressure, adequacy of pulmonary ventilation, and response to care were monitored throughout the procedure. The physical status of the patient was re-assessed after the procedure. The Endoscope was introduced through the mouth, and advanced to the second part of duodenum. The upper GI endoscopy was accomplished without difficulty. The patient tolerated the procedure well. Findings: The examined esophagus was normal. Two non-bleeding superficial gastric ulcers with a clean ulcer base (Wero Class III) were found in the gastric antrum. The largest lesion was 10 mm in largest dimension. Biopsies were taken with a cold forceps for histology. Two biopsies were obtained in the gastric antrum with cold forceps for Helicobacter pylori testing. Verification of patient identification for the specimen was done by the physician and nurse using the patient's name, date and medical record number. Estimated blood loss was minimal. The duodenal bulb and second portion of the duodenum were normal. Biopsies for histology were taken with a cold forceps for evaluation of celiac disease. Impression: - Normal esophagus. - Non-bleeding gastric ulcers with a clean ulcer base (Wero Class III). Biopsied. - Normal duodenal bulb and second portion of the duodenum. Biopsied. - Two biopsies were obtained in the gastric antrum. Recommendation: - Patient has a contact number available for emergencies. The signs and symptoms of potential delayed complications were discussed with the patient. Return to normal activities tomorrow. Written discharge instructions were provided to the patient. - High fiber diet. - Continue present medications. - Await pathology results. - Use Prilosec (omeprazole) 40 mg PO Daily - to be taken multifocal button grinder on empty stomach for 8 weeks. - Repeat upper endoscopy in 3 months to check healing and depending on the symptoms and clinical response. - Telephone GI clinic for pathology results in 2 weeks. - Return to primary care physician. Gilles Gallagher MD Gilles Gallagher MD 06/19/2019 2:04:17 PM Electronically signed by Gilles Gallagher MD Number of Addenda: 0 Note Initiated On: 06/19/2019 1:23 PM Estimated Blood Loss: Estimated blood loss was minimal.
[2019-06-19 14:05] VITALS: BP 132/75
== END 2019-06-19 14:22 | disposition home or self-care (01) ==
LOC: M OPP 12:04
PROVIDERS: ATTEND Internal Medicine Gastroenterology
DX: K25.9 Gastric ulcer, unspecified as acute or chronic, without hemorrhage or perforation (principal); R14.0 Abdominal distension (gaseous); K21.9 Gastro-esophageal reflux disease without esophagitis; Z80.0 Family history of malignant neoplasm of digestive organs; F32.9 Major depressive disorder, single episode, unspecified; M51.9 Unspecified thoracic, thoracolumbar and lumbosacral intervertebral disc disorder; I44.0 Atrioventricular block, first degree; R19.7 Diarrhea, unspecified; M47.819 Spondylosis without myelopathy or radiculopathy, site unspecified; Z79.899 Other long term (current) drug therapy

== ENCOUNTER → 2020-12-11 | Outpatient (REF) | payer MEDICARE ==
[~2020-12-11] MED LIST changes: -NS 1,000 ML IV ONE
[2020-12-12 11:40] LABS: CLOSTRIDIUM DIFFICILE PCR NEGATIVE (NEGATIVE)
== END ==
LOC: M LAB REF 09:15
PROVIDERS: ATTEND Internal Medicine Gastroenterology
DX: R19.7 Diarrhea, unspecified (principal)

== ENCOUNTER → 2020-12-12 | Outpatient (CLI) | payer MEDICARE ==
[2020-12-12 08:08] LABS: BASO % 0.3 % (0.0-1.0); EOS # 0.3 10^3/uL (0.0-0.5); EOS % 4.4 % (0.0-3.0); HEMATOCRIT 40.2 % (36.0-47.0); HEMOGLOBIN 13.1 g/dl (12.0-15.5); LYMPH # 2.3 10^3/uL (1.5-5.0); LYMPH % 38.7 % (24.0-44.0); MEAN CORPUSCULAR HEMOGLOBIN 30.5 pg (27.0-33.0); MEAN CORPUSCULAR HGB CONC 32.6 g/dl (32.0-36.5); MEAN CORPUSCULAR VOLUME 93.5 fl (80.0-96.0); MONO # 0.5 10^3/uL (0.0-0.8); NEUTROPHILS # 2.8 10^3/uL (1.5-8.5); NEUTROPHILS % 47.4 % (36.0-66.0); PLATELET COUNT, AUTOMATED 307 10^3/uL (150-450); WHITE BLOOD COUNT 5.9 10^3/uL (4.0-10.0)
[2020-12-12 08:34] LABS: BLOOD UREA NITROGEN 17 MG/DL (7-18); CREATININE FOR GFR 0.78 MG/DL (0.55-1.30); GLOMERULAR FILTRATION RATE > 60.0 (>39)
== END ==
LOC: M LAB 07:12
PROVIDERS: ATTEND Internal Medicine Gastroenterology
DX: R19.7 Diarrhea, unspecified (principal)

== ENCOUNTER → 2021-01-23 | Outpatient (CLI) | payer MEDICARE ==
--- NOTE | 2021-01-23 14:42 | REPVR ---
PROCEDURE INFORMATION: Exam: MR Lumbar Spine Without Contrast Exam date and time: 01/23/2021 1:07 PM Age: 70 years old Clinical indication: Low back pain; Additional info: Spinal stenosis lumbar region TECHNIQUE: Imaging protocol: Multiplanar magnetic resonance images of the lumbar spine without intravenous contrast. COMPARISON: MRI-Spine, L.S. without con 01/25/2019 9:22 AM FINDINGS: Vertebrae: There is moderate lumbar levoscoliosis. The appearance is similar to prior study. Spinal cord: Normal signal. No cord compression. L1-L2: There is degenerative disc disease including disc space narrowing and dessication. There is mild disc bulging. There is moderate bilateral neural foraminal narrowing. There is facet arthropathy and ligamentum flavum hypertrophy. There is mild spinal canal stenosis. L2-L3: There is disc space narrowing and desiccation. There are moderate degenerative end plate changes at this level. There is a moderate disc bulge with a moderate right foraminal disc herniation. There is severe right-sided neuroforaminal narrowing. There is moderate left-sided neuroforaminal narrowing. There is compromise of the lateral recesses bilaterally, right worse than left. There is facet arthropathy and ligamentum flavum hypertrophy. There is mild spinal canal stenosis. L3-L4: There is congenital spinal canal stenosis which is exacerbated by multilevel degenerative changes. Spinal canal stenosis is most severe at L3/4. There is multilevel neural foraminal stenosis. These findings have progressed since prior study. There is degenerative disc disease including disc space narrowing and dessication. There is moderate disc bulging. There is a small right foraminal disc protrusion. There is moderate bilateral neural foraminal narrowing, right worse than left. There is facet arthropathy and ligamentum flavum hypertrophy. There is moderate/severe spinal canal stenosis. L4-L5: There is degenerative disc disease including disc space narrowing and dessication. There is moderate disc bulging. There is a right foraminal disc herniation. There is moderate bilateral neural foraminal narrowing, right worse than left. There is compromise of the lateral recesses bilaterally. There is facet arthropathy and ligamentum flavum hypertrophy. There is mild spinal canal stenosis. L5-S1: There is disc space narrowing and desiccation. There are moderate degenerative end plate changes at this level. There is a moderate disc bulge with a small superimposed central disc herniation. There is mild/moderate bilateral neuroforaminal narrowing, left worse than right. There is facet arthropathy and ligamentum flavum hypertrophy. Soft tissues: Unremarkable. There is a left adnexal cyst. This is not imaged in its entirety on this exam and therefore not fully evaluated. IMPRESSION: 1. There is congenital spinal canal stenosis which is exacerbated by multilevel degenerative changes. Spinal canal stenosis is most severe at L3/4. There is multilevel neural foraminal stenosis. These findings have progressed since prior study. Please see details above. 2. There is moderate lumbar levoscoliosis. 3. There is a left adnexal cyst. This is not imaged in its entirety on this exam and therefore not fully evaluated. Followup pelvic ultrasound is recommended. Electronically signed by: Cem Pittman On 01/23/2021 14:42:17 PM
== END ==
LOC: M PLAIMG 12:24
PROVIDERS: ATTEND Physical Medicine & Rehabilitation
DX: M48.061 Spinal stenosis, lumbar region without neurogenic claudication (principal)

== ENCOUNTER → 2021-02-13 | Outpatient (CLI) | payer MEDICARE ==
[2021-02-13 09:18] LABS: PLATELET COUNT, AUTOMATED 301 10^3/uL (150-450)
[2021-02-13 09:40] LABS: COLLAGEN EPINEPHRINE 118 SECONDS (74-162)
[2021-02-13 10:39] LABS: INR 1.07; PROTHROMBIN TIME 14.4 SECONDS (12.7-14.5)
[2021-02-13 10:40] LABS: PARTIAL THROMBOPLASTIN TIME 28.7 SECONDS (25.9-37.0)
== END ==
LOC: M LAB 07:31
PROVIDERS: ATTEND Physical Medicine & Rehabilitation
DX: M47.27 Other spondylosis with radiculopathy, lumbosacral region (principal)

== ENCOUNTER → 2021-06-30 | Outpatient (CLI) | payer MEDICARE | LOC: M WHC 11:00 | PROVIDERS: ATTEND Family Medicine | DX: Z12.31 Encounter for screening mammogram for malignant neoplasm of breast (principal) ==

== ENCOUNTER → 2021-06-30 | Outpatient (CLI) | payer MEDICARE | LOC: M WHC 10:57 | PROVIDERS: ATTEND Family Medicine | DX: Z12.31 Encounter for screening mammogram for malignant neoplasm of breast (principal); Z13.820 Encounter for screening for osteoporosis; M85.89 Other specified disorders of bone density and structure, multiple sites ==

== ENCOUNTER 2021-08-19 16:13 | Emergency (ER) | payer MEDICARE ==
[~2021-08-19] VITALS: Ht 162.6 cm; Wt 71.8 kg
[~2021-08-19 16:13] MED LIST changes: -APAP325T4 PO; -CARI1TAB7 PO; -LIDO5DIS41 TOP; -METH-1164 PO
[2021-08-19] MEDS ORDERED: CARI1TAB7 PO (16:22)
[2021-08-19] MEDS ORDERED: APAP325T4 PO (16:22)
[2021-08-19] MEDS ORDERED: LIDOCAINE 5% (LIDODERM) PATCH TD ONE (19:40)
[2021-08-19] MEDS ORDERED: KETOROLAC 30 MG/ML 1ML VIAL IM ONE (19:40)
[2021-08-19] MEDS ORDERED: methocarbamoL 500 MG TAB PO ONE (19:40)
[2021-08-19] MEDS ORDERED: METH-1164 PO (20:45)
[2021-08-19] MEDS ORDERED: LIDO5DIS41 TOP (20:52)
[2021-08-19] MEDS ORDERED: **NOTE PATIENT COMMENT** MISC XX SCH (21:00)
[2021-08-19 21:06] VITALS: BP 134/75
== END 2021-08-19 22:08 | disposition home or self-care (01) ==
LOC: M ED 16:13
DX: M54.42 Lumbago with sciatica, left side (principal); K21.9 Gastro-esophageal reflux disease without esophagitis; Z87.01 Personal history of pneumonia (recurrent); Z79.899 Other long term (current) drug therapy
CPT/HCPCS: 36415; 82565; 84520; 96372; 99283; J1885

== ENCOUNTER → 2021-08-19 | Outpatient (CLI) | payer MEDICARE ==
[~2021-08-19] MED LIST changes: +APAP325T4 PO; +CARI1TAB7 PO; +LIDO5DIS41 TOP; +METH-1164 PO
[2021-08-19 11:22] LABS: BLOOD UREA NITROGEN 15 MG/DL (7-18); CREATININE FOR GFR 0.79 MG/DL (0.55-1.30); GLOMERULAR FILTRATION RATE > 60.0 (>39)
== END ==
LOC: M LAB 10:30
PROVIDERS: ATTEND Physical Medicine & Rehabilitation
DX: M54.50 Low back pain, unspecified (principal)

== ENCOUNTER → 2021-08-22 | Outpatient (CLI) | payer MEDICARE ==
[~2021-08-22] MED LIST changes: +APAP325T4 PO; +CARI1TAB7 PO; +LIDO5DIS41 TOP; +METH-1164 PO; +PROHANCE 279.3MG/ML 15ML VIAL As Ordered ONE
== END ==
LOC: M RAD 09:38
PROVIDERS: ATTEND Physical Medicine & Rehabilitation
DX: M51.26 Other intervertebral disc displacement, lumbar region (principal); M51.36 Other intervertebral disc degeneration, lumbar region; M48.062 Spinal stenosis, lumbar region with neurogenic claudication
CPT/HCPCS: 72158; A9576

== ENCOUNTER → 2022-03-06 | Outpatient (CLI) | payer MEDICARE ==
[~2022-03-06] MED LIST changes: -PROHANCE 279.3MG/ML 15ML VIAL As Ordered ONE
== END ==
LOC: M WHC 08:53
PROVIDERS: ATTEND Family Medicine
DX: R10.31 Right lower quadrant pain (principal); N83.202 Unspecified ovarian cyst, left side

== ENCOUNTER → 2022-07-06 | Outpatient (CLI) | payer MEDICARE | LOC: M WHC 08:42 | PROVIDERS: ATTEND Family Medicine | DX: Z12.31 Encounter for screening mammogram for malignant neoplasm of breast (principal) ==

== ENCOUNTER → 2023-02-16 | Outpatient (REF) | payer MEDICARE | LOC: M LAB REF 11:15 | PROVIDERS: ATTEND Internal Medicine Gastroenterology | DX: R19.7 Diarrhea, unspecified (principal) ==

== ENCOUNTER → 2023-07-29 | Outpatient (CLI) | payer MEDICARE | LOC: M WHC 07:58 | PROVIDERS: ATTEND Family Medicine | DX: Z12.31 Encounter for screening mammogram for malignant neoplasm of breast (principal) ==

== ENCOUNTER 2023-08-24 06:31 | Day surgery (SDC) | payer MEDICARE ==
[~2023-08-24] VITALS: Ht 161.3 cm; Wt 69.2 kg
[~2023-08-24 06:31] MED LIST changes: +FAMO1TAB11 PO
[2023-08-24] MEDS ORDERED: SIMETHICONE 40MG/0.6ML DROPS 30ML As Ordered ONE (06:40)
[2023-08-24] MEDS ORDERED: LIDOCAINE 2% MDV 20ML VIAL As Ordered ONE (07:05)
[2023-08-24] MEDS ORDERED: propofoL 200 MG/20 ML VIAL As Ordered ONE (07:05)
[2023-08-24] MEDS: NS 1,000 ML IV ONE (07:07)
[2023-08-24 07:58] VITALS: TEMP 97.1
[2023-08-24 08:25] VITALS: BP 148/67; O2SAT 98
== END 2023-08-24 08:34 | disposition home or self-care (01) ==
LOC: M OPP 06:31
PROVIDERS: ATTEND Internal Medicine Gastroenterology
DX: Z86.010 Personal history of colon polyps (principal); D12.6 Benign neoplasm of colon, unspecified; K63.5 Polyp of colon; K64.8 Other hemorrhoids; K64.4 Residual hemorrhoidal skin tags; K57.30 Diverticulosis of large intestine without perforation or abscess without bleeding; Z79.1 Long term (current) use of non-steroidal anti-inflammatories (NSAID); Z79.899 Other long term (current) drug therapy

== ENCOUNTER → 2024-08-18 | Outpatient (CLI) | payer MEDICARE ==
[~2024-08-18] MED LIST changes: +CARI-555 PO; -CARI1TAB7 PO; +FLUO-365 PO; -FLUO20CA22 PO
== END ==
LOC: M WHC 09:56
PROVIDERS: ATTEND Nurse Practitioner Family
DX: Z12.31 Encounter for screening mammogram for malignant neoplasm of breast (principal)

== ENCOUNTER → 2025-03-05 | Outpatient (CLI) | payer MEDICARE ==
[~2025-03-05] MED LIST changes: +LIDO1ADH93 TOP; -LIDO5DIS41 TOP
== END ==
LOC: M WUC 08:14
PROVIDERS: ATTEND Physician Assistant
DX: M25.571 Pain in right ankle and joints of right foot (principal); S92.354A Nondisplaced fracture of fifth metatarsal bone, right foot, initial encounter for closed fracture; X58.XXXA Exposure to other specified factors, initial encounter; Y92.9 Unspecified place or not applicable; Y93.9 Activity, unspecified; Y99.9 Unspecified external cause status